=== PATIENT | male | born 1995 | race Caucasian/White ===

== ENCOUNTER 2017-09-05 03:58 | Emergency (ER) | payer SELFPAY ==
[~2017-09-05] VITALS: Ht 182.9 cm; Wt 135.0 kg
[~2017-09-05 03:58] MED LIST: ZITH250T PO
[2017-09-05 04:01] VITALS: BP 117/71; PULSE 95; RESP 15; TEMP 97.6; O2SAT 97
[2017-09-05] MEDS ORDERED: SODIUM CHLOR 0.9% 1000 ML INJ 1,000 ML IV ONE (04:15)
[2017-09-05] MEDS ORDERED: MORPHINE SULFATE 4 MG/ML INJ IV PUSH ONE (04:15)
[2017-09-05] MEDS ORDERED: ONDANSETRON HCL 4 MG/2 ML VIAL IV PUSH ONE (04:15)
[2017-09-05] MEDS ORDERED: TETANUS/DIPHTHERIA TOXOID ADULT 0.5 ML VIAL IM ONE (04:15)
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
[2017-09-05] MEDS ORDERED: AMOXICILLIN/CLAVULANATE K 875 MG TAB PO ONE (05:30)
[2017-09-05] MEDS ORDERED: TRAM50TA PO (06:00)
[2017-09-05] MEDS ORDERED: AUGM875T3 PO (06:00)
== END 2017-09-05 06:44 | disposition home or self-care (01) ==
LOC: NEPD 03:58
DX: S02.2XXB Fracture of nasal bones, initial encounter for open fracture (principal); S01.21XA Laceration without foreign body of nose, initial encounter; Z23 Encounter for immunization; Y04.2XXA Assault by strike against or bumped into by another person, initial encounter
CPT/HCPCS: 12011; 70450; 70486; 72125; 90471; 90714; 96361; 96374; 96375; 99285; J2270; J2405; J7030